=== PATIENT | male | born 2000 | race Asian ===

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

== ENCOUNTER → 2020-08-26 | Outpatient (CLI) | payer OTHER ==
[2020-08-26 14:14] LABS: ALBUMIN 4.3 g/dL (3.4-5.0); ALKALINE PHOSPHATASE 69 U/L (46-116); ALT/SGPT 23 U/L (16-63); AST/SGOT 13 U/L (15-37); CALCIUM 9.3 mg/dL (8.5-10.1); CARBON DIOXIDE 29.2 mmol/L (21-32); CHLORIDE SERUM 104 mmol/L (98-107); CHOLESTEROL 150 mg/dL (<200); CHOLESTEROL/HDL RATIO 3.5; GFR1 > 60 mL/min; GLUCOSE SERUM 95 mg/dL (74-106); HDL CHOLESTEROL 43 mg/dL (40-60); POTASSIUM SERUM 3.9 mmol/L (3.5-5.1); SODIUM SERUM 141 mmol/L (136-145); TOTAL PROTEIN, SERUM 7.3 g/dL (6.4-8.2); TRIGLYCERIDES 91 mg/dL (<150)
[2020-08-26 15:25] LABS: BASOPHIL % 0.7 % (0.2-1.5); PLATELET COUNT 250 x10^3mcL (152-348); RED CELL DISTRIBUTION WIDTH 12.5 % (12.1-16.2)
== END | disposition home or self-care (01) ==
LOC: LB 13:36
PROVIDERS: ATTEND Internal Medicine
DX: Z00.00 Encounter for general adult medical examination without abnormal findings (principal)